=== PATIENT | female | born 1950 | race African-American/Black ===

== ENCOUNTER 2016-11-20 22:49 | Emergency (ER) | payer MEDICARE, OTHER ==
[~2016-11-20] VITALS: Ht 160 cm; Wt 77.3 kg
[~2016-11-20 22:49] MED LIST: AMOXICILLIN 8751 TAB PO; ATIVAN 0.50.5 MG/TAB PO; ATOXIMETIN-B1 CAP PO; BIOTIN1 MG PO; C COMPLEX; CALCIUM + D 5001 TAB PO; CALTRATE 600 +1 TAB PO; CALTRATE-600 W600 MG PO; CARDI-OMEGA1000 MG PO; CLONAZEPAM1 MG PO; CLONAZEPAM2 MG PO; CRESTOR 10MG10 MG PO; CRESTOR10 MG PO; CYMBALTA 60MG60 MG PO; DOCUSATE CALCI100 MG PO; ESCITALOPRAM; FETZIMA120; FETZIMA120 PO; FISH OIL CONC1000 MG PO; FLEXERIL10 MG PO; FLONASE NASAL S16 GM NS; FLONASE0.05 MG/AC NS; GARLIC SUPPLEM300 MG; GLUCOSAMINE PO; KLONOPIN 1MG1 MG PO; LAMICTAL 100MG100 MG PO; LAMICTAL1 TAB PO; LEVOTHYROXINE0.1 MG PO; LEXAPRO20 MG PO; LYRICA 25MG CAP25 MG PO; LYRICA75 MG PO; MEPEREDINE50 MG PO; METHADONE5 MG PO; MILK OF MA400 MG/51 PO; MINIPRESS2 MG PO; MULTIPLE VITAMI1 TAB PO; MVI; NORCO 325 MG-51 TAB PO; NORCO 325 MG-7.1 TAB PO; NUCYNTA50 MG PO; PERCOCET 5/321 UDTAB PO; PRILOSEC 20MG20 MG PO; PROBIOTIC FORMU1 CAP PO; RISPERDAL 1M1 MG/TAB PO; RISPERDAL1 MG PO; SEROQUEL200 MG PO; STOOL SOFTENER100 M2 PO; TAMAZEPAM; TEMAZEPAM; ULTRAM 50MG TAB50 MG PO; VALIUM 5MG T5 MG/TAB PO; VITAMIN B-6100 MG PO; VITAMIN B12250 MCG PO; VITAMIN C1 TAB PO; VITAMIN D 50,1.25 MG PO; WELLBUTRIN SR150 M1 PO; ZOVIRAX800 MG; [UNRECOGNIZED DRUG - OTHER] PO; [UNRECOGNIZED DRUG - OTHER] SC
[2016-11-20 22:54] VITALS: BP 155/87; TEMP 98.5
[2016-11-20] MEDS ORDERED: NORCO 325 MG-7.1 TAB PO (23:53)
[2016-11-21 00:01] VITALS: PULSE 80
== END 2016-11-21 00:02 | disposition home or self-care (01) ==
LOC: COL.ER 22:49
DX: M54.16 Radiculopathy, lumbar region (principal)
CPT/HCPCS: J2270; J7512

== ENCOUNTER 2016-12-31 22:46 | Emergency (ER) | payer MEDICARE, OTHER ==
[~2016-12-31] VITALS: Ht 160 cm; Wt 79.5 kg
[2016-12-31 22:54] VITALS: TEMP 98.3
[2017-01-01 00:51] VITALS: BP 108/70; PULSE 74
== END 2017-01-01 00:52 | disposition home or self-care (01) ==
LOC: COL.ER 22:46
DX: M54.16 Radiculopathy, lumbar region (principal); E11.9 Type 2 diabetes mellitus without complications; Z79.84 Long term (current) use of oral hypoglycemic drugs
CPT/HCPCS: J1170

== ENCOUNTER → 2017-01-27 | Outpatient (CLI) | payer MEDICARE, OTHER | LOC: BHSO 14:34 | DX: F41.1 Generalized anxiety disorder (principal) ==

== ENCOUNTER → 2017-05-24 | Outpatient (CLI) | payer MEDICARE, OTHER | LOC: BHSO 10:47 | DX: F31.73 Bipolar disorder, in partial remission, most recent episode manic (principal) ==

== ENCOUNTER → 2017-07-26 | Outpatient (CLI) | payer MEDICARE, OTHER | LOC: MC.RAD 12:57 | DX: Z12.31 Encounter for screening mammogram for malignant neoplasm of breast (principal) ==

== ENCOUNTER → 2017-07-28 | Outpatient (CLI) | payer MEDICARE, OTHER | LOC: BHSO 14:31 | DX: F31.73 Bipolar disorder, in partial remission, most recent episode manic (principal) ==

== ENCOUNTER 2017-10-16 15:16 | Emergency (ER) | payer MEDICARE, OTHER ==
[~2017-10-16] VITALS: Ht 160 cm; Wt 84.1 kg
[2017-10-16 15:18] VITALS: BP 139/77; TEMP 98.3
[2017-10-16] MEDS ORDERED: XYZAL5 MG PO (16:37)
[2017-10-16] MEDS ORDERED: MOVANTIK25 MG PO (16:38)
[2017-10-16] MEDS ORDERED: LOTREL 5/20 CAP1 CAP PO (16:38)
[2017-10-16] MEDS ORDERED: MYRBETR50MG PO (16:39)
[2017-10-16 17:26] VITALS: PULSE 80
== END 2017-10-16 17:27 | disposition home or self-care (01) ==
LOC: COL.ER 15:16
DX: S83.92XA Sprain of unspecified site of left knee, initial encounter (principal); X50.0XXA Overexertion from strenuous movement or load, initial encounter

== ENCOUNTER → 2017-10-18 | Outpatient (CLI) | payer MEDICARE, OTHER ==
[~2017-10-18] MED LIST changes: +LOTREL 5/20 CAP1 CAP PO; +MOVANTIK25 MG PO; +MYRBETR50MG PO; +XYZAL5 MG PO
== END ==
LOC: BHSO 13:42
DX: F31.73 Bipolar disorder, in partial remission, most recent episode manic (principal)

== ENCOUNTER 2017-11-03 19:07 | Emergency (ER) | payer MEDICARE, OTHER ==
[~2017-11-03] VITALS: Ht 160 cm; Wt 84.1 kg
[2017-11-03 19:13] VITALS: BP 132/72; TEMP 98.2
[2017-11-03] MEDS ORDERED: REXULTI3 MG PO (21:07)
[2017-11-03 21:30] VITALS: PULSE 82
== END 2017-11-03 21:30 | disposition home or self-care (01) ==
LOC: COL.ER 19:07
DX: M25.552 Pain in left hip (principal); M54.9 Dorsalgia, unspecified; G89.29 Other chronic pain; E11.9 Type 2 diabetes mellitus without complications; F31.9 Bipolar disorder, unspecified; M79.7 Fibromyalgia; F17.210 Nicotine dependence, cigarettes, uncomplicated; Z79.84 Long term (current) use of oral hypoglycemic drugs
CPT/HCPCS: J1170

== ENCOUNTER 2017-11-23 16:58 | Emergency (ER) | payer MEDICARE, OTHER ==
[~2017-11-23] VITALS: Ht 160 cm; Wt 88.6 kg
[~2017-11-23 16:58] MED LIST changes: +REXULTI3 MG PO
[2017-11-23 17:00] VITALS: BP 147/69; TEMP 99
[2017-11-23 20:09] VITALS: PULSE 94
== END 2017-11-23 20:10 | disposition home or self-care (01) ==
LOC: COL.ER 16:58
DX: M54.16 Radiculopathy, lumbar region (principal); E11.9 Type 2 diabetes mellitus without complications; Z79.84 Long term (current) use of oral hypoglycemic drugs; G89.29 Other chronic pain; F32.9 Major depressive disorder, single episode, unspecified; E89.0 Postprocedural hypothyroidism; F17.200 Nicotine dependence, unspecified, uncomplicated; Z88.6 Allergy status to analgesic agent; Z88.5 Allergy status to narcotic agent; Z88.2 Allergy status to sulfonamides; Z88.8 Allergy status to other drugs, medicaments and biological substances
CPT/HCPCS: J1170

== ENCOUNTER → 2017-12-13 | Outpatient (CLI) | payer MEDICARE, OTHER | LOC: BHSO 12:55 | DX: F31.81 Bipolar II disorder (principal) | CPT/HCPCS: G0463 ==

== ENCOUNTER 2018-01-24 14:14 | Emergency (ER) | payer MEDICARE, OTHER ==
[~2018-01-24] VITALS: Ht 160 cm; Wt 80.9 kg
[2018-01-24 14:19] VITALS: TEMP 98.1
[2018-01-24 15:44] LABS: BASO # 0.1 (0.0-0.2); EOS # 0.1 (0.0-0.7); EOS % 1.3 % (0-4.0); GRAN # 6.6 (1.4-6.5); GRAN % 60.7 % (42.2-75.2); HEMATOCRIT 43.3 % (37.0-47.0); HEMOGLOBIN 15.2 g/dl (12.5-16.0); LYMPH # 3.5 (1.2-3.4); LYMPH % 31.9 % (20.0-51.0); MEAN CELL VOLUME 92 fl (80.0-100.0); MEAN CORPUSCULAR HEMOGLOBIN 32 pg (27.0-31.0); MEAN CORPUSCULAR HGB CONC 35 g/dl (33.0-37.0); MEAN PLATELET VOLUME 12.3 fl (7.4-10.4); MONO # 0.5 (0.1-0.6); MONO % 4.6 % (1.7-9.3); PLATELET COUNT 201 K/mm3 (130-400); REDCELL DISTRIBUTION WIDTH-CV 11.5 % (11.5-14.5)
[2018-01-24 15:55] LABS: ACETONE,SERUM NEGATIVE
[2018-01-24 16:13] LABS: ALANINE AMINOTRANSFERASE 41 U/L (9-52); ALBUMIN 4.5 gm/dL (3.5-5.0); ALKALINE PHOSPHATASE 224 U/L (50-136); ANION GAP 15 mmol/L (7-16); AST,SGOT 20 U/L (15-37); BILIRUBIN,TOTAL 0.7 mg/dL (0.0-1.0); BLOOD UREA NITROGEN 15 mg/dL (7-17); C-REACTIVE PROTEIN 1.5 mg/dL (0.0-0.9); CALCIUM 10.2 mg/dL (8.4-10.2); CARBON DIOXIDE 26 mmol/L (22-30); CREATININE, serum 1.02 mg/dL (0.52-1.25); POTASSIUM 5.6 mmol/L (3.4-5.0); SODIUM 129 mmol/L (137-145)
[2018-01-24 16:21] LABS: CHLORIDE 88 mmol/L (98-107); GLUCOSE 771 mg/dL (74-106)
[2018-01-24 17:00] LABS: COLLECTION METHOD CLEAN CATCH
[2018-01-24 17:06] LABS: PH 6 (5-8); SQUAMOUS EPITHELIAL 0-2 /hpf; URINE APPEARANCE Clear; URINE BACTERIA None Seen /hpf; URINE BILIRUBIN Negative (NEGATIVE); URINE BLOOD Negative (NEGATIVE); URINE COLOR Straw; URINE GLUCOSE 3+ (NEGATIVE); URINE KETONE Trace (NEGATIVE); URINE LEUKOCYTE ESTERASE Negative (NEGATIVE); URINE NITRATE Negative (NEGATIVE); URINE PROTEIN(semi-quant) Negative (NEGATIVE); URINE RBC 0-2 /hpf; URINE UROBILINOGEN Negative (NEGATIVE)
[2018-01-24] MEDS ORDERED: GLUCOPHAGE500 MG/TAB PO (18:22)
[2018-01-24 19:34] VITALS: BP 138/86; PULSE 98
== END 2018-01-24 19:36 | disposition home or self-care (01) ==
LOC: COL.ER 14:14
PROVIDERS: Emergency Medicine
DX: E11.65 Type 2 diabetes mellitus with hyperglycemia (principal); I10 Essential (primary) hypertension; F17.210 Nicotine dependence, cigarettes, uncomplicated; Z87.39 Personal history of other diseases of the musculoskeletal system and connective tissue
CPT/HCPCS: J1815; J7030

== ENCOUNTER 2018-02-02 14:51 | Emergency (ER) | payer MEDICARE, OTHER ==
[~2018-02-02] VITALS: Ht 160 cm; Wt 80.9 kg
[~2018-02-02 14:51] MED LIST changes: +GLUCOPHAGE500 MG/TAB PO
[2018-02-02 15:29] VITALS: TEMP 98.7
[2018-02-02 15:39] LABS: COLLECTION METHOD CLEAN CATCH
[2018-02-02 15:49] LABS: PH 5 (5-8); SQUAMOUS EPITHELIAL 0-2 /hpf; URINE APPEARANCE Hazy; URINE BACTERIA Rare /hpf; URINE BILIRUBIN Negative (NEGATIVE); URINE BLOOD Negative (NEGATIVE); URINE COLOR Yellow; URINE GLUCOSE 3+ (NEGATIVE); URINE KETONE 1+ (NEGATIVE); URINE LEUKOCYTE ESTERASE Trace (NEGATIVE); URINE NITRATE Negative (NEGATIVE); URINE PROTEIN(semi-quant) Negative (NEGATIVE); URINE RBC 0-2 /hpf; URINE UROBILINOGEN Negative (NEGATIVE)
[2018-02-02 15:51] LABS: BASO # 0.1 (0.0-0.2); BASO % 0.8 % (0.0-2.0); EOS # 0.2 (0.0-0.7); EOS % 1.5 % (0-4.0); GRAN # 8.4 (1.4-6.5); GRAN % 58.7 % (42.2-75.2); HEMATOCRIT 30.1 % (37.0-47.0); LYMPH # 4.5 (1.2-3.4); LYMPH % 31.7 % (20.0-51.0); MEAN CELL VOLUME 99 fl (80.0-100.0); MEAN CORPUSCULAR HEMOGLOBIN 33 pg (27.0-31.0); MEAN CORPUSCULAR HGB CONC 33 g/dl (33.0-37.0); MEAN PLATELET VOLUME 10.7 fl (7.4-10.4); MONO # 0.9 (0.1-0.6); MONO % 6.2 % (1.7-9.3); PLATELET COUNT 270 K/mm3 (130-400); RED BLOOD COUNT 3.03 M/mm3 (4.10-5.30); REDCELL DISTRIBUTION WIDTH-CV 13.1 % (11.5-14.5)
[2018-02-02] MEDS ORDERED: PRILOSEC 20MG20 MG PO (16:01)
[2018-02-02] MEDS ORDERED: JARDIANCE10 (16:01)
[2018-02-02 16:05] LABS: ALANINE AMINOTRANSFERASE 35 U/L (9-52); ALBUMIN 4.1 gm/dL (3.5-5.0); ALKALINE PHOSPHATASE 99 U/L (50-136); ANION GAP 19 mmol/L (7-16); AST,SGOT 31 U/L (15-37); BILIRUBIN,TOTAL 1.7 mg/dL (0.0-1.0); BLOOD UREA NITROGEN 18 mg/dL (7-17); C-REACTIVE PROTEIN 6.2 mg/dL (0.0-0.9); CALCIUM 9.9 mg/dL (8.4-10.2); CARBON DIOXIDE 20 mmol/L (22-30); CHLORIDE 98 mmol/L (98-107); CREATININE, serum 0.79 mg/dL (0.52-1.25); GLUCOSE 146 mg/dL (74-106); POTASSIUM 4.5 mmol/L (3.4-5.0); SODIUM 137 mmol/L (137-145)
[2018-02-02 16:08] LABS: ACETONE,SERUM NEGATIVE
[2018-02-02] MEDS ORDERED: CEFTIN500 MG PO (17:22)
[2018-02-02 17:29] VITALS: BP 128/80; PULSE 94
== END 2018-02-02 17:36 | disposition home or self-care (01) ==
LOC: COL.ER 14:51
PROVIDERS: Emergency Medicine
DX: E11.65 Type 2 diabetes mellitus with hyperglycemia (principal); N39.0 Urinary tract infection, site not specified; D64.9 Anemia, unspecified; F32.9 Major depressive disorder, single episode, unspecified; F41.9 Anxiety disorder, unspecified; Z90.710 Acquired absence of both cervix and uterus; Z90.89 Acquired absence of other organs; Z79.84 Long term (current) use of oral hypoglycemic drugs
CPT/HCPCS: J7030

== ENCOUNTER 2018-02-07 16:35 | Inpatient (IN) | payer MEDICARE, OTHER ==
[~2018-02-07] VITALS: Ht 160 cm; Wt 80.8 kg
[2018-02-07] VITALS (33 sets, daily range): BP systolic 139; BP diastolic 71; PULSE 97; TEMP 97; O2SAT 100
[~2018-02-07 16:35] MED LIST changes: +CEFTIN500 MG PO; +D-2000 90 MG-201 TAB PO; +JARDIANCE10; -VITAMIN D 50,1.25 MG PO
[2018-02-07 17:23] LABS: BASO # 0.1 (0.0-0.2); BASO % 0.8 % (0.0-2.0); EOS # 0.2 (0.0-0.7); EOS % 1.9 % (0-4.0); GRAN # 6.3 (1.4-6.5); GRAN % 58.8 % (42.2-75.2); LYMPH # 3.6 (1.2-3.4); LYMPH % 33.3 % (20.0-51.0); MEAN CELL VOLUME 105 fl (80.0-100.0); MEAN CORPUSCULAR HGB CONC 32 g/dl (33.0-37.0); MEAN PLATELET VOLUME 10.1 fl (7.4-10.4); MONO # 0.5 (0.1-0.6); MONO % 4.8 % (1.7-9.3); PLATELET COUNT 328 K/mm3 (130-400); RED BLOOD COUNT 2.61 M/mm3 (4.10-5.30); REDCELL DISTRIBUTION WIDTH-CV 15.7 % (11.5-14.5)
[2018-02-07 17:25] LABS: HEMATOCRIT 27.5 % (37.0-47.0); HEMOGLOBIN 8.7 g/dl (12.5-16.0); MEAN CORPUSCULAR HEMOGLOBIN 33 pg (27.0-31.0)
[2018-02-07 17:34] LABS: ALBUMIN 3.9 gm/dL (3.5-5.0); BILIRUBIN,TOTAL 0.6 mg/dL (0.0-1.0); CALCIUM 9.3 mg/dL (8.4-10.2); CREATININE, serum 0.69 mg/dL (0.52-1.25); POTASSIUM 3.9 mmol/L (3.4-5.0); TOTAL PROTEIN 7.8 gm/dL (6.4-8.2)
[2018-02-07 17:44] LABS: C-REACTIVE PROTEIN 13.5 mg/dL (0.0-0.9)
[2018-02-07] MEDS ORDERED: [UNRECOGNIZED DRUG - CODE] PO (17:58)
[2018-02-07] MEDS ORDERED: LAMICTAL200 MG PO (18:01)
[2018-02-07] MEDS ORDERED: KLONOPIN 1MG1 MG PO (18:02)
[2018-02-07] MEDS ORDERED: DYMISTA1 SPR NS (18:03)
[2018-02-07] MEDS ORDERED: PERCOCET 325 MG1 TA3 PO (18:04)
[2018-02-07] MEDS ORDERED: FLEXERIL 1010 MG/TAB PO (18:04)
[2018-02-07] MEDS ORDERED: EPA FISH OIL1 SGL PO (18:05)
[2018-02-07] MEDS ORDERED: OCUVITE1 TA1 PO (18:05)
[2018-02-07] MEDS ORDERED: CALCIUM CARBON650 M2 (18:06)
[2018-02-08] VITALS (630 sets, daily range): BP systolic 127–144; BP diastolic 71–84; PULSE 84–100; TEMP 97–98.4; O2SAT 47–100
[2018-02-08 06:56] LABS: BASO % 0.3 % (0.0-2.0); GRAN # 8.1 (1.4-6.5); GRAN % 84.2 % (42.2-75.2); LYMPH # 1.3 (1.2-3.4); LYMPH % 13.8 % (20.0-51.0); MEAN CELL VOLUME 103 fl (80.0-100.0); MEAN CORPUSCULAR HGB CONC 32 g/dl (33.0-37.0); MEAN PLATELET VOLUME 10.1 fl (7.4-10.4); MONO # 0.1 (0.1-0.6); PLATELET COUNT 314 K/mm3 (130-400); RED BLOOD COUNT 2.47 M/mm3 (4.10-5.30); REDCELL DISTRIBUTION WIDTH-CV 15.5 % (11.5-14.5)
[2018-02-08 06:59] LABS: HEMATOCRIT 25.5 % (37.0-47.0); HEMOGLOBIN 8.2 g/dl (12.5-16.0); MEAN CORPUSCULAR HEMOGLOBIN 33 pg (27.0-31.0)
[2018-02-08 07:06] LABS: CALCIUM 8.7 mg/dL (8.4-10.2); CREATININE, serum 0.61 mg/dL (0.52-1.25); POTASSIUM 4.4 mmol/L (3.4-5.0)
[2018-02-08 11:50] LABS: CALCIUM 8.9 mg/dL (8.4-10.2); CREATININE, serum 0.61 mg/dL (0.52-1.25)
[2018-02-08] MEDS ORDERED: NORVASC 10MG10 MG PO (12:17)
[2018-02-08] MEDS ORDERED: EPIPEN 2-PAK1 MG/ML IM (12:26)
== END 2018-02-08 14:45 | disposition home or self-care (01) | DRG 916 ==
LOC: COL.ER 16:35 → ICU 18:22
PROVIDERS: Emergency Medicine; Nurse Practitioner
DX: T78.3XXA Angioneurotic edema, initial encounter (principal); T46.4X5A Adverse effect of angiotensin-converting-enzyme inhibitors, initial encounter; E11.9 Type 2 diabetes mellitus without complications; M79.7 Fibromyalgia; R53.82 Chronic fatigue, unspecified; F17.210 Nicotine dependence, cigarettes, uncomplicated
CPT/HCPCS: 99222-AI; 99238; J0171; J1200; J1650; J2930; J7030

== ENCOUNTER → 2018-03-02 | Outpatient (CLI) | payer MEDICARE, OTHER ==
[~2018-03-02] MED LIST changes: +CALCIUM CARBON650 M2; +DYMISTA1 SPR NS; +EPA FISH OIL1 SGL PO; +EPIPEN 2-PAK1 MG/ML IM; +FLEXERIL 1010 MG/TAB PO; +LAMICTAL200 MG PO; +NORVASC 10MG10 MG PO; +OCUVITE1 TA1 PO; +PERCOCET 325 MG1 TA3 PO; +[UNRECOGNIZED DRUG - CODE] PO
== END ==
LOC: SUN.DIA 13:15
DX: E11.9 Type 2 diabetes mellitus without complications (principal); I10 Essential (primary) hypertension; E66.9 Obesity, unspecified; Z68.31 Body mass index [BMI] 31.0-31.9, adult; Z71.3 Dietary counseling and surveillance; F17.210 Nicotine dependence, cigarettes, uncomplicated
CPT/HCPCS: G0108

== ENCOUNTER → 2018-03-07 | Outpatient (CLI) | payer MEDICARE, OTHER | LOC: BHSO 13:47 | DX: F31.81 Bipolar II disorder (principal) | CPT/HCPCS: G0463 ==

== ENCOUNTER → 2018-03-21 | Outpatient (CLI) | payer MEDICARE, OTHER | LOC: SUN.DIA 15:24 | DX: E11.9 Type 2 diabetes mellitus without complications (principal); I10 Essential (primary) hypertension; E03.9 Hypothyroidism, unspecified; E66.9 Obesity, unspecified; Z68.31 Body mass index [BMI] 31.0-31.9, adult; Z71.3 Dietary counseling and surveillance; F17.210 Nicotine dependence, cigarettes, uncomplicated ==

== ENCOUNTER → 2018-04-12 | Outpatient (CLI) | payer MEDICARE, OTHER | LOC: SUN.DIA 15:47 | DX: E11.9 Type 2 diabetes mellitus without complications (principal); I10 Essential (primary) hypertension; E03.9 Hypothyroidism, unspecified; E66.9 Obesity, unspecified; Z71.3 Dietary counseling and surveillance; F17.210 Nicotine dependence, cigarettes, uncomplicated | CPT/HCPCS: G0109 ==

== ENCOUNTER → 2018-04-26 | Outpatient (CLI) | payer MEDICARE, OTHER | LOC: SUN.DIA 04-19 16:42 | DX: E11.9 Type 2 diabetes mellitus without complications (principal); I10 Essential (primary) hypertension; E03.9 Hypothyroidism, unspecified; E66.9 Obesity, unspecified; Z71.3 Dietary counseling and surveillance; F17.210 Nicotine dependence, cigarettes, uncomplicated | CPT/HCPCS: G0109 ==

== ENCOUNTER → 2018-05-09 | Outpatient (CLI) | payer MEDICARE, OTHER | LOC: BHSO 10:35 | DX: F33.41 Major depressive disorder, recurrent, in partial remission (principal) | CPT/HCPCS: G0463 ==

== ENCOUNTER → 2018-05-10 | Outpatient (CLI) | payer MEDICARE, OTHER | LOC: SUN.DIA 05-09 10:45 | DX: E11.9 Type 2 diabetes mellitus without complications (principal); I10 Essential (primary) hypertension; E03.9 Hypothyroidism, unspecified; E66.9 Obesity, unspecified; Z71.3 Dietary counseling and surveillance; F17.210 Nicotine dependence, cigarettes, uncomplicated | CPT/HCPCS: G0109 ==

== ENCOUNTER → 2018-05-23 | Outpatient (CLI) | payer MEDICARE, OTHER | LOC: SUN.DIA 15:42 | DX: E11.9 Type 2 diabetes mellitus without complications (principal); I10 Essential (primary) hypertension; E03.9 Hypothyroidism, unspecified; E66.9 Obesity, unspecified; F17.210 Nicotine dependence, cigarettes, uncomplicated ==

== ENCOUNTER → 2018-05-24 | Outpatient (CLI) | payer MEDICARE, OTHER | LOC: SUN.DIA 10:12 | DX: E11.9 Type 2 diabetes mellitus without complications (principal); E03.9 Hypothyroidism, unspecified; E66.9 Obesity, unspecified; F17.210 Nicotine dependence, cigarettes, uncomplicated | CPT/HCPCS: G0109 ==

== ENCOUNTER → 2018-08-07 | Outpatient (CLI) | payer MEDICARE, OTHER | LOC: MC.RAD 13:09 | DX: Z12.31 Encounter for screening mammogram for malignant neoplasm of breast (principal) ==

== ENCOUNTER → 2018-08-17 | Outpatient (CLI) | payer MEDICARE, OTHER | LOC: COL.RAD 08:36 | DX: M16.11 Unilateral primary osteoarthritis, right hip (principal) | CPT/HCPCS: J3301; Q9967 ==

== ENCOUNTER → 2018-08-31 | Outpatient (CLI) | payer MEDICARE, OTHER | LOC: BHSO 14:39 | DX: F33.41 Major depressive disorder, recurrent, in partial remission (principal) | CPT/HCPCS: G0463 ==

== ENCOUNTER → 2018-10-03 | Outpatient (CLI) | payer MEDICARE, OTHER | LOC: SUN.DIA 09-26 14:22 | DX: E11.9 Type 2 diabetes mellitus without complications (principal); E03.9 Hypothyroidism, unspecified; E66.9 Obesity, unspecified; F17.210 Nicotine dependence, cigarettes, uncomplicated ==

== ENCOUNTER → 2018-12-08 | Outpatient (CLI) | payer MEDICARE, OTHER | LOC: BHSO 10:34 | DX: F33.41 Major depressive disorder, recurrent, in partial remission (principal) | CPT/HCPCS: G0463 ==

== ENCOUNTER 2019-02-06 08:00 | Outpatient (RCR) | payer MEDICARE, OTHER | END 2019-02-06 09:37 | disposition home or self-care (01) | LOC: WSC 08:00 | DX: M54.16 Radiculopathy, lumbar region (principal) ==

== ENCOUNTER → 2019-03-20 | Outpatient (CLI) | payer MEDICARE, OTHER | LOC: BHSO 09:39 | DX: F33.1 Major depressive disorder, recurrent, moderate (principal) | CPT/HCPCS: G0463 ==

== ENCOUNTER → 2019-06-19 | Outpatient (CLI) | payer MEDICARE, OTHER | LOC: BHSO 09:54 | DX: F33.41 Major depressive disorder, recurrent, in partial remission (principal) | CPT/HCPCS: G0463 ==

== ENCOUNTER → 2019-09-12 | Outpatient (CLI) | payer MEDICARE, OTHER | LOC: BHSO 10:35 | DX: F33.41 Major depressive disorder, recurrent, in partial remission (principal) | CPT/HCPCS: G0463 ==

== ENCOUNTER 2019-10-30 08:11 | Day surgery (SDC) | payer MEDICARE, OTHER ==
[~2019-10-30] VITALS: Ht 160 cm; Wt 82.9 kg
[2019-10-30] VITALS (7 sets, daily range): BP systolic 135–168; BP diastolic 70–89; PULSE 73–89; TEMP 97.3–97.6
[~2019-10-30 08:11] MED LIST changes: -D-2000 90 MG-201 TAB PO; +LAMICTAL150 MG PO; -LAMICTAL200 MG PO; +LEVOXYL0.125 MG PO; +MASON NATURAL2000 IU PO
[2019-10-30] MEDS ORDERED: PRILOTC PO (10:35)
[2019-10-30] MEDS ORDERED: CYMBALTA 60MG60 MG PO (10:35)
[2019-10-30] MEDS ORDERED: JARDIANCE25 PO (10:35)
[2019-10-30] MEDS ORDERED: VALTREX1 GM PO (10:36)
[2019-10-30] MEDS ORDERED: VOLTAREN GEL 1%1 TU TP (10:36)
[2019-10-30] MEDS ORDERED: ZOCOR 20MG20 MG PO (10:37)
[2019-10-30] MEDS ORDERED: LIORESAL 1010 MG/TAB PO (10:37)
[2019-10-30] MEDS ORDERED: VITAMIN C500 MG PO (10:37)
[2019-10-30] MEDS ORDERED: NORCO 325 MG-7.1 TAB PO (10:38)
[2019-10-30] MEDS ORDERED: PROBIOTIC ACID1 EAC3 PO (10:38)
--- NOTE | 2019-10-30 11:07 | NUR ---
Pt assisted to bathroom to void and change pad. Given mesh undergarments and pad to replace. Report given to Rebecca RIVET THROWER. Pt taken via cart to OR for scheduled surgery.
--- NOTE | 2019-10-30 12:12 | NUR ---
Pt returned via cart from OR to bay 6. Pt drowsy, arouses to touch and verbal stimuli. VSS-see flowsheet. IVF to RAC IV without redness or infiltration. Side rails up, call light in reach. Lights dimmed for pt to rest. Daughter in consultation room waiting to see Dr Yi.
--- NOTE | 2019-10-30 12:45 | NUR ---
Pts daughter brought to room. Pt snoring with episodes of apnea. 2L 02 via NC applied while pt drowsy and sleeping. VS remain stable.
--- NOTE | 2019-10-30 14:05 | NUR ---
VS remain stable. Pt tolerated muffin and coffee. Assisted to bathroom with steady gait, able to void. IV removed with catheter intact.
--- NOTE | 2019-10-30 14:15 | NUR ---
Daughter assisted pt in dressing for dc home. Discharge teaching completed, pt and daughter verbalized understanding and denied questions or concerns. Taken via wheelchair to private vehicle for dc home with daughter driving. Pt sent with [employer] and informed the device represenative, John, would be contacting them later today.
== END 2019-10-30 14:15 | disposition home or self-care (01) ==
LOC: SDCO 08:11
DX: R32 Unspecified urinary incontinence (principal); F41.9 Anxiety disorder, unspecified; J44.9 Chronic obstructive pulmonary disease, unspecified; F32.9 Major depressive disorder, single episode, unspecified; E11.9 Type 2 diabetes mellitus without complications; K21.9 Gastro-esophageal reflux disease without esophagitis; M79.7 Fibromyalgia; I10 Essential (primary) hypertension; G89.29 Other chronic pain; E03.9 Hypothyroidism, unspecified; M51.16 Intervertebral disc disorders with radiculopathy, lumbar region; G43.909 Migraine, unspecified, not intractable, without status migrainosus; M19.90 Unspecified osteoarthritis, unspecified site; Z90.710 Acquired absence of both cervix and uterus; Z79.84 Long term (current) use of oral hypoglycemic drugs; Z88.8 Allergy status to other drugs, medicaments and biological substances; Z88.6 Allergy status to analgesic agent; Z88.2 Allergy status to sulfonamides; F17.210 Nicotine dependence, cigarettes, uncomplicated; Z82.49 Family history of ischemic heart disease and other diseases of the circulatory system
CPT/HCPCS: C1767; C1778; C1787; C1894; J0690; J2704; J7030

== ENCOUNTER → 2019-12-12 | Outpatient (CLI) | payer MEDICARE, OTHER ==
[~2019-12-12] MED LIST changes: +JARDIANCE25 PO; +LIORESAL 1010 MG/TAB PO; +PRILOTC PO; +PROBIOTIC ACID1 EAC3 PO; +VALTREX1 GM PO; +VITAMIN C500 MG PO; +VOLTAREN GEL 1%1 TU TP; +ZOCOR 20MG20 MG PO
== END ==
LOC: BHSO 10:41
DX: F33.41 Major depressive disorder, recurrent, in partial remission (principal)
CPT/HCPCS: G0463

== ENCOUNTER → 2020-06-17 | Outpatient (CLI) | payer MEDICARE, OTHER | LOC: BHSO 11:01 | DX: F33.41 Major depressive disorder, recurrent, in partial remission (principal) | CPT/HCPCS: G0463 ==

== ENCOUNTER → 2020-08-12 | Outpatient (CLI) | payer MEDICARE, OTHER | LOC: MC.RAD 09:37 | DX: Z12.31 Encounter for screening mammogram for malignant neoplasm of breast (principal) ==

== ENCOUNTER → 2020-09-09 | Outpatient (CLI) | payer MEDICARE, OTHER | LOC: BHSO 14:53 | DX: F33.41 Major depressive disorder, recurrent, in partial remission (principal) | CPT/HCPCS: G0463 ==

== ENCOUNTER 2020-11-29 14:57 | Emergency (ER) | payer MEDICARE, OTHER ==
[~2020-11-29] VITALS: Ht 160 cm; Wt 81.8 kg
[2020-11-29 15:02] VITALS: BP 151/84; TEMP 97.3
[2020-11-29] MEDS ORDERED: SYNJARDY XR 101 EACH PO (15:59)
[2020-11-29 17:14] VITALS: PULSE 73
== END 2020-11-29 17:14 | disposition home or self-care (01) ==
LOC: COL.ER 14:57
DX: S20.20XA Contusion of thorax, unspecified, initial encounter (principal); Z90.710 Acquired absence of both cervix and uterus; Z90.89 Acquired absence of other organs; Z88.1 Allergy status to other antibiotic agents; Z88.2 Allergy status to sulfonamides; Z88.6 Allergy status to analgesic agent; Z88.8 Allergy status to other drugs, medicaments and biological substances; Z79.84 Long term (current) use of oral hypoglycemic drugs; Z79.890 Hormone replacement therapy; W18.2XXA Fall in (into) shower or empty bathtub, initial encounter
CPT/HCPCS: A9284

== ENCOUNTER → 2021-06-18 | Outpatient (CLI) | payer MEDICARE, OTHER ==
[~2021-06-18] MED LIST changes: +SYNJARDY XR 101 EACH PO
== END ==
LOC: MC.RAD 10:44
DX: N60.01 Solitary cyst of right breast (principal)

== ENCOUNTER → 2021-11-30 | Outpatient (CLI) | payer MEDICARE, OTHER | LOC: COL.RAD 09:46 | DX: Z12.2 Encounter for screening for malignant neoplasm of respiratory organs (principal); F17.210 Nicotine dependence, cigarettes, uncomplicated; J43.9 Emphysema, unspecified ==

== ENCOUNTER → 2022-06-29 | Outpatient (CLI) | payer MEDICARE, OTHER | LOC: MC.RAD 09:23 | DX: Z12.31 Encounter for screening mammogram for malignant neoplasm of breast (principal) ==

== ENCOUNTER → 2023-12-05 | Outpatient (CLI) | payer MEDICARE, OTHER ==
[~2023-12-05] MED LIST changes: +ANORO IH; +ASPIRIN 81M81 MG/TA2 PO; +ATARAX50 MG PO; +COZAAR 25MG25 MG/TAB PO; +DECADRON6 MG PO; +HYZAAR 50-12.1 UDTAB PO; +KLONOPIN 0.5MG0.5 MG PO; +NORVASC2.5 MG PO; +OMEGA-3 1000 MG1 CAP PO; +OMEGA-31 SGL PO; +OXYGEN NASAL.CANN; +PRAVACHOL 20MG20 MG PO; +PROAIR HFA0.09 MG/AC IH; +PROBIOTIC BLEN1 EACH PO; +REXULTI1 MG PO; +SYNTHROID0.112 MG/T PO; +TOPROL XL 50MG50 MG PO; +VITAMINC1000TA
== END ==
LOC: COL.RAD 07:16
DX: Z12.2 Encounter for screening for malignant neoplasm of respiratory organs (principal); Z87.891 Personal history of nicotine dependence

== ENCOUNTER → 2024-01-20 | Outpatient (CLI) | payer MEDICARE, OTHER ==
[~2024-01-20] MED LIST changes: +Iohexol 300 - 10 ML VIAL IV ONE; +Triamcinolone 40 MG/ML 1 ML VIAL IJ ONE
== END ==
LOC: COL.RAD 07:10
DX: M16.0 Bilateral primary osteoarthritis of hip (principal)
CPT/HCPCS: J0665; J3301; Q9967

== ENCOUNTER 2024-06-27 12:24 | Outpatient (CLI) | payer MEDICARE ==
[~2024-06-27] VITALS: Ht 160 cm; Wt 69.0 kg
[~2024-06-27 12:24] MED LIST changes: -Iohexol 300 - 10 ML VIAL IV ONE; -Triamcinolone 40 MG/ML 1 ML VIAL IJ ONE
[2024-06-27] MEDS ORDERED: LIORESAL 1010 MG/TAB PO (13:08)
[2024-06-27] MEDS ORDERED: FLONASEALLERGY NS (13:12)
[2024-06-27] MEDS ORDERED: ASTELIN NASAL S34 ML NS (13:13)
[2024-06-27] MEDS ORDERED: LASIX 40MG TABL40 MG PO (13:14)
[2024-06-27] MEDS ORDERED: KLOR-CON SPRIN10 MEQ PO (13:15)
[2024-06-27] MEDS ORDERED: PRAVACHOL 20MG20 MG PO (13:16)
[2024-06-27] MEDS ORDERED: EUTHYROX25 MCG PO (13:16)
[2024-06-27] MEDS ORDERED: LAMICTAL150 MG PO (13:17)
[2024-06-27] MEDS ORDERED: SINGULAIR 110 MG/TAB PO (13:19)
[2024-06-27] MEDS ORDERED: HYDROCHLOROTH12.5 MG PO (13:20)
[2024-06-27] MEDS ORDERED: EPIPEN 2-PAK1 MG/ML IM (13:22)
[2024-06-27] MEDS ORDERED: VENTOLIN0.09 MG IH (13:22)
[2024-06-27] MEDS ORDERED: MAGNESIUM200 MG PO (13:23)
[2024-06-27] MEDS ORDERED: PROBACAP1 EACH PO (13:23)
[2024-06-27] MEDS ORDERED: OSCAL 500 TAB500 MG PO (13:24)
[2024-06-27] MEDS ORDERED: AREDS (13:25)
[2024-06-27] MEDS ORDERED: VITAMIN D362.5 MC1 PO (13:25)
[2024-06-27 13:26] VITALS: BP 132/78; PULSE 79; TEMP 97.5
[2024-06-27] MEDS ORDERED: Iohexol 300 - 10 ML VIAL IV ONE (14:36)
[2024-06-27 14:37] VITALS: BP 130/74; PULSE 75
--- NOTE | 2024-06-27 14:39 | NUR ---
Pt arrived to room 9 via cart.report stefany Balderrama RN.Pt awake,alert ,calllight within reach.
[2024-06-27 14:45] VITALS: BP 126/73; PULSE 73
[2024-06-27 15:00] VITALS: BP 125/69; PULSE 75
[2024-06-27 15:15] VITALS: BP 102/87; PULSE 87
[2024-06-27 15:30] VITALS: BP 129/68; PULSE 75
--- NOTE | 2024-06-27 15:45 | NUR ---
Discharge instructions given to pt.Pt verbalizes understanding.Pt escortedo ut via wheelchair by this nurse.
== END 2024-06-27 15:46 ==
LOC: COL.RAD 12:24
DX: M54.2 Cervicalgia (principal)
CPT/HCPCS: Q9967